=== PATIENT | female | born 1985 | race Caucasian/White ===

== ENCOUNTER 2022-02-06 14:07 | Emergency (ER) | payer OTHER ==
[~2022-02-06] VITALS: Ht 165.1 cm; Wt 95.4 kg
[2022-02-06] MEDS ORDERED: NAPROXEN500 MG PO (15:30)
[2022-02-06 15:49] VITALS: BP 99/53
== END 2022-02-06 16:00 | disposition home or self-care (01) | DRG 563 ==
LOC: ED 14:07
DX: S93.492A Sprain of other ligament of left ankle, initial encounter (principal); S93.491A Sprain of other ligament of right ankle, initial encounter; W10.9XXA Fall (on) (from) unspecified stairs and steps, initial encounter; Y92.89 Other specified places as the place of occurrence of the external cause; Y99.0 Civilian activity done for income or pay

== ENCOUNTER 2023-03-25 09:24 | Emergency (ER) | payer SELFPAY ==
[2023-03-25] VITALS (8 sets, daily range): BP systolic 91–130; BP diastolic 47–79
[~2023-03-25] VITALS: Ht 165.1 cm; Wt 72.7 kg
[~2023-03-25 09:24] MED LIST: NAPROXEN500 MG PO
[2023-03-25 10:01] LABS: BASO% 0.4 % (0-3); EOS% 2.2 % (0-8); HEMATOCRIT 35.6 % (37.0-47.0); HEMOGLOBIN 9.8 g/dl (12.0-16.0); MEAN CELL VOLUME 68.5 fL CALC (80.0-100.0); MEAN CORPUSCULAR HGB 18.8 pG CALC (26.0-32.0); MEAN CORPUSCULAR HGB CONC 27.5 g/dL CAL (32.0-36.0); MONO% 5.5 % (2-13); NEUT# 4.2 thou/uL (2.00-7.15); NEUT% 76.9 % (42-76); RED BLOOD COUNT 5.2 mill/uL (4.20-5.60); RED CELL DISTRI WIDTH 18.4 % (11.5-15.5)
[2023-03-25 10:13] LABS: ALKALINE PHOSPHATASE 78 u/l (38-126); ANION GAP 13 (6-22 (CALC)); BILIRUBIN, TOTAL 0.5 mg/dL (0.02-1.3); BUN 7 mg/dL (7-17); BUN/CREATININE RATIO 12 (12-20 (CALC)); CARBON DIOXIDE 23 mmol/l (22-30); CHLORIDE 105 mmol/l (95-108); CREATININE 0.6 mg/dL (0.5-1.0); GFR FOR AFR.AMER. > 60 ML/MIN (>=60 (CALC)); GFR OTHER RACES > 60 ML/MIN (>=60 (CALC)); LIPASE 32 u/l (23-300); POTASSIUM 3.2 mmol/l (3.5-5.1); SGOT/AST 35 u/l (14-36); SODIUM 138 mmol/l (137-146); TOTAL PROTEIN 6.9 g/dL (6.3-8.2)
[2023-03-25 12:03] LABS: URINE BILIRUBIN - DIPSTICK Negative (NEGATIVE); URINE BLOOD DIPSTICK Small (NEGATIVE); URINE GLUCOSE - DIPSTICK Negative (NEGATIVE); URINE KETONE 15 mg/dL (NEGATIVE); URINE LEUK ESTERASE Negative (NEGATIVE); URINE NITRITE - DIPSTICK Negative (Negative); URINE PH 5.5 (4.5-8.0); URINE PROTEIN - DIPSTICK Negative (NEG-TRACE); URINE SPECIFIC GRAVITY <=1.005
[2023-03-25 12:17] LABS: URINE COLOR Yellow
[2023-03-25] MEDS ORDERED: ZOFRAN4 MG/TAB PO (13:54)
[2023-03-25] MEDS ORDERED: OMEPRAZOLE DR40 MG PO (13:54)
[2023-03-25] MEDS ORDERED: K-TAB20 MEQ PO (13:57)
[2023-03-26] MEDS ORDERED: ALINIA500 MG PO (13:59)
[2023-03-26] MEDS ORDERED: ZPAK PO (13:59)
== END 2023-03-25 14:10 | disposition home or self-care (01) | DRG 392 ==
LOC: ED 09:24
PROVIDERS: Family Medicine
DX: R10.84 Generalized abdominal pain (principal); Z72.0 Tobacco use
CPT/HCPCS: Q9967; S0164

== ENCOUNTER 2023-03-26 10:39 | Emergency (ER) | payer SELFPAY ==
[2023-03-26] VITALS (12 sets, daily range): BP systolic 84–120; BP diastolic 39–78
[~2023-03-26] VITALS: Ht 165.1 cm; Wt 74.8 kg
[~2023-03-26 10:39] MED LIST changes: +K-TAB20 MEQ PO; +OMEPRAZOLE DR40 MG PO; +ZOFRAN4 MG/TAB PO
[2023-03-26 11:19] LABS: BASO% 0.2 % (0-3); EOS% 2.6 % (0-8); HEMATOCRIT 32.7 % (37.0-47.0); HEMOGLOBIN 9.1 g/dl (12.0-16.0); IMMATURE GRANULOCYTES 0.2 % (0.0-5.0); LYMPH% 16.3 % (15-41); MEAN CELL VOLUME 68.6 fL CALC (80.0-100.0); MEAN CORPUSCULAR HGB 19.1 pG CALC (26.0-32.0); MEAN CORPUSCULAR HGB CONC 27.8 g/dL CAL (32.0-36.0); MONO% 4.6 % (2-13); NEUT# 3.17 thou/uL (2.00-7.15); NEUT% 76.1 % (42-76); RED BLOOD COUNT 4.77 mill/uL (4.20-5.60); RED CELL DISTRI WIDTH 17.8 % (11.5-15.5)
[2023-03-26 11:55] LABS: ALBUMIN 3.4 g/dL (3.2-5.0); ALKALINE PHOSPHATASE 66 u/l (38-126); ANION GAP 11 (6-22 (CALC)); BILIRUBIN, TOTAL 0.5 mg/dL (0.02-1.3); BUN 7 mg/dL (7-17); BUN/CREATININE RATIO 14 (12-20 (CALC)); CARBON DIOXIDE 22 mmol/l (22-30); CHLORIDE 105 mmol/l (95-108); CREATININE 0.5 mg/dL (0.5-1.0); GFR FOR AFR.AMER. > 60 ML/MIN (>=60 (CALC)); GFR OTHER RACES > 60 ML/MIN (>=60 (CALC)); LIPASE 29 u/l (23-300); POTASSIUM 3.1 mmol/l (3.5-5.1); SGOT/AST 43 u/l (14-36); SODIUM 135 mmol/l (137-146)
[2023-03-26] MEDS ORDERED: ZPAK PO (13:59)
[2023-03-26] MEDS ORDERED: ALINIA500 MG PO (13:59)
== END 2023-03-26 14:21 | disposition home or self-care (01) | DRG 392 ==
LOC: ED 10:39
PROVIDERS: Family Medicine
DX: R10.84 Generalized abdominal pain (principal); Z72.0 Tobacco use

== ENCOUNTER 2024-01-08 13:43 | Emergency (ER) | payer OTHER ==
[~2024-01-08] VITALS: Ht 165.1 cm; Wt 78.0 kg
[~2024-01-08 13:43] MED LIST changes: +ALINIA500 MG PO; +ZPAK PO
[2024-01-08] MEDS ORDERED: methylPREDNISolone SODIUM SUCC 125 MG/2 ML SDV IM ONE (14:05)
[2024-01-08] MEDS ORDERED: TRIAMCINOLON0.11 EX (14:13)
[2024-01-08] MEDS ORDERED: PREDNISONE10 MG PO (14:13)
[2024-01-08 14:24] VITALS: BP 107/55
== END 2024-01-08 14:35 | disposition home or self-care (01) ==
LOC: ED 13:43 → EDBD 14:01 → ED 14:35
DX: L40.0 Psoriasis vulgaris (principal)